=== PATIENT | male | born 1955 | race Caucasian/White ===

== ENCOUNTER 2021-02-25 09:27 | Outpatient (CLI) | payer MEDICARE, SELFPAY ==
--- NOTE | 2021-02-25 09:39 | XR_ITS ---
WS: [id number] Chest 2 views, 02/25/2021 Clinical Data: SHORTNESS OF BREATH Comparison: None. Findings: No nodules, masses or effusions are seen. The heart is normal. The pulmonary vascularity is not increased. No pneumonia or pneumothorax is seen. The aortic arch and descending aorta show mild tortuosity. The diaphragms are flattened. There are calcified granulomas throughout the lungs. There is a decorative item overlying the body of the sternum. XR/XR chest 2V* 92177 Impression: Atherosclerosis and hyperinflation.
== END 2021-02-25 09:28 | disposition home or self-care (01) ==
PROVIDERS: PCP Clinical Nurse Specialist Adult Health; Visit Provider Clinical Nurse Specialist Adult Health
DX: R06.02 Shortness of breath (principal); I70.90 Unspecified atherosclerosis
CPT/HCPCS: 71046

== ENCOUNTER → 2022-10-24 14:31 | Outpatient (BNVA) | payer MEDICARE, SELFPAY | PROVIDERS: PCP Clinical Nurse Specialist Adult Health; Visit Provider Clinical Nurse Specialist Adult Health | DX: Z00.01 Encounter for general adult medical examination with abnormal findings (principal); I10 Essential (primary) hypertension; R19.7 Diarrhea, unspecified | CPT/HCPCS: 80053; 82150; 83690; 84436; 84443; 84481; 85025 ==

== ENCOUNTER → 2023-12-25 10:36 | Outpatient (BNVA) | payer MEDICARE, SELFPAY | PROVIDERS: PCP Clinical Nurse Specialist Adult Health; Visit Provider Clinical Nurse Specialist Adult Health | DX: Z00.01 Encounter for general adult medical examination with abnormal findings (principal); D50.9 Iron deficiency anemia, unspecified; I10 Essential (primary) hypertension; R73.9 Hyperglycemia, unspecified | CPT/HCPCS: 80053; 80061; 83036; 85025 ==

== ENCOUNTER → 2024-01-30 09:16 | Outpatient (BNVA) | payer MEDICARE, SELFPAY | PROVIDERS: PCP Clinical Nurse Specialist Adult Health; Visit Provider Clinical Nurse Specialist Adult Health | DX: Z00.01 Encounter for general adult medical examination with abnormal findings (principal); D50.9 Iron deficiency anemia, unspecified | CPT/HCPCS: 82270 ==

== ENCOUNTER 2024-12-30 11:42 | Emergency (ER) | payer MEDICARE, SELFPAY ==
[2024-12-30 11:52] VITALS: BP 115/72; PULSE 71; RESP 16; TEMP 36.5; O2SAT 100
[2024-12-30 13:13] LABS: Hematocrit 46.3 % (37-53); Hemoglobin 15.90 g/dL (11.27-16.99); Mean Corpuscular HGB Conc 34.3 g/dL (30-55); Mean Corpuscular Hemoglobin 32.6 pg (27-33); Mean Corpuscular Volume 95.1 fl (82-101); Nucleated Red Blood Cells % 0 %; Platelet Count 182 10^3/cmm (157-399); Red Blood Count 4.87 10^6/uL (3.85-5.65); White Blood Count 12.02 10^3/uL (3.29-11.43)
--- NOTE | 2024-12-30 13:22 | W.ED.ALCOHOL ---
HPI - Alcohol General: Chief Complaint: Alcohol Stated Complaint: etoh Time Seen by Provider: 12/30/24 12:59 Source: patient Mode of arrival: EMS Limitations: no limitations History of Present Illness: Patient is a 69-year-old male who presents to ED today via EMS requesting medical alcohol detox. Patient states he has a longstanding alcoholic drinking over a pint of hard alcohol daily. Patient has been drinking today and clinically arrives intoxicated although he engages in conversation quite well. His vital signs are stable. Patient has never sought any form of formal detox previously. He states he has tried to quit home on his own. Patient has never had an alcohol withdrawal seizure. Patient has no physical complaints at time of arrival. 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 Chronic alcohol use: Yes Previous visits for alcohol intoxication: No Recent trauma: No Associated symptoms: Reports no associated symptoms; Deny abdominal pain, nausea, syncope or vomiting Treatments prior to arrival: none Related Data Home Medications ?Medication ?Instructions ?Recorded ?Confirmed famotidine 20 mg tablet (Pepcid) 20 mg PO DAILY 12/25/23 12/30/24 lisinopril 20 mg tablet 20 mg PO DAILY 12/30/24 12/30/24 Allergies Allergy/AdvReac Type Severity Reaction Status Date / Time No Known Allergies Allergy Verified 12/25/23 09:47 Review of Systems Const: Denies: fever(s), chills, body aches, fatigue or malaise Card: Denies: chest pain, palpitations, lightheadedness, syncope or pre-syncope Resp: Denies: dyspnea GI: Denies: abdominal pain, nausea, vomiting or diarrhea Musc: Denies: neck pain, back pain, extremity pain or joint swelling Neuro: Denies: headache(s), numbness in extremities, weakness in extremities, sensory changes, difficulty walking, dizziness or confusion [facility] ED PFSH: Medical History Tobacco dependence due to cigarettes Toxoplasmosis at age 22 Hx of heat stroke Hx of essential hypertension Surgical History History of arthroplasty of left wrist Family History Other CAD (coronary artery disease) Cancer Hypertension Social History Smoking and tobacco/nicotine status: current every day tobacco/nicotine user cigarettes [ Other cigarette details: 0.25 pack for 17 years] Alcohol intake: current Alcohol type: hard liquor Substance/Drug Use: former Date of last use: marijuana Physical Exam Const: COMMON NORMALS: no acute distress, average body habitus, patient oriented x3, no limitations, healthy appearing, alert and well nourished GENERAL APPEARANCE: cooperative ORIENTATION/CONSCIOUSNESS: Yes awake, Yes oriented to person, Yes oriented to place and Yes oriented to time HENMT: COMMON NORMALS: normocephalic and atraumatic HEAD & SCALP: normal to inspection, normocephalic and atraumatic FACE & SINUS: normal facial exam Neck/C-Spine: COMMON NORMALS: full ROM, no lymphadenopathy, supple and no meningeal signs Chest: COMMONS NORMALS: normal inspection of the chest Resp: COMMON NORMALS: normal respiratory effort and clear to auscultation bilaterally AUSCULTATION: clear to auscultation bilaterally Cardio: COMMON NORMALS: regular rate and regular rhythm RATE: regular rate RHYTHM: regular rhythm GI: COMMON NORMALS: Normal to inspection, nondistended, normoactive bowel sounds present, Soft to palpation, non-tender, No hepatosplenomegaly present and no masses PALPATION: Yes Soft to palpation and Yes No hepatosplenomegaly present Back/Pelvis: COMMON NORMALS: thoracic and lumbar spine normal to inspection Extremity: COMMON NORMALS: normal to inspection GENERAL: Yes normal exam except as noted Neuro: VERN COMA SCALE: document GCS findings Vern coma scale eye opening: Spontaneous [place] coma scale verbal response: Orientated [place] coma scale motor response: Obey commands [place] coma scale total score: 15 COMMON NORMALS: patient oriented x3, CN's II-XII intact bilaterally, moves all extremities, no focal motor deficits, no sensory deficits noted and gait normal SENSORIUM/ORIENTATION: Yes alert, Yes oriented to person, Yes oriented to place and Yes oriented to time MENINGEAL SIGNS: Yes no meningeal signs Skin: COMMON NORMALS: no rashes or lesions noted GENERAL SKIN EXAM: no rashes or lesions noted Course Vital Signs: Vital signs: Vital Signs Temperature 97.7 F 12/30/24 11:52 Pulse Rate 71 12/30/24 11:52 Respiratory Rate 16 12/30/24 11:52 Blood Pressure 115/72 12/30/24 11:52 Pulse Oximetry 100 12/30/24 11:52 Oxygen Delivery Me thod Room Air 12/30/24 11:52 MDM - Alcohol Medical Decision Making Patient does not meet criteria for medical inpatient detox. Discussed how he needs a terminal make up operator detox facility for the best chance of success to maintain sobriety. He was given information for [facility] and seems agreeable to this. States he will have to get things settled at home (get care for his animals, etc) before he is ready to do this. He feels comfortable going home at this time and pursuing this when he is ready. There is no indication for hospitalization at this time. Differential Diagnosis Likely alcohol intoxication Medical Records I reviewed the patient's medical records. Lab Data I reviewed the patient's lab results. 12/30/24 13:06 Laboratory Results WBC 12.02 10^3/uL (3.29-11.43) H 12/30/24 13:06 RBC 4.87 10^6/uL (3.85-5.65) 12/30/24 13:06 Hgb 15.90 g/dL (11.27-16.99) 12/30/24 13:06 Hct 46.3 % (37-53) 12/30/24 13:06 MCV 95.1 fl (82-101) 12/30/24 13:06 MCH 32.6 pg (27-33) 12/30/24 13:06 MCHC 34.3 g/dL (30-55) 12/30/24 13:06 RDW 13.2 % (12.1-15.1) 12/30/24 13:06 Plt Count 182 10^3/cmm (157-399) 12/30/24 13:06 MPV 9.1 fL (7.4-10.4) 12/30/24 13:06 Neut % (Auto) 69.0 % 12/30/24 13:06 Lymph % (Auto) 21.6 % 12/30/24 13:06 [place] % (Auto) 7.7 % 12/30/24 13:06 Eos % (Auto) 0.2 % 12/30/24 13:06 Baso % (Auto) 0.5 % 12/30/24 13:06 Neut # (Auto) 8.29 10^3/uL (1.8-7.7) H 12/30/24 13:06 Lymph # (Auto) 2.6 10^3/uL (0.8-4.8) 12/30/24 13:06 [place] # (Auto) 0.9 10^3/uL (0.2-0.9) 12/30/24 13:06 Eos # (Auto) 0.0 10^3/uL (0.0-0.8) 12/30/24 13:06 Baso # (Auto) 0.1 10^3/uL (0.0-0.1) 12/30/24 13:06 Nucleated RBC % (auto) 0 % 12/30/24 13:06 Nucleated RBCs # 0.0 /100WBC 12/30/24 13:06 Sodium Cancelled 12/30/24 13:06 Potassium Cancelled 12/30/24 13:06 Chloride Cancelled 12/30/24 13:06 Carbon Dioxide Cancelled 12/30/24 13:06 Anion Gap Cancelled 12/30/24 13:06 BUN Cancelled 12/30/24 13:06 Creatinine Cancelled 12/30/24 13:06 GFR Calculation Cancelled 12/30/24 13:06 Glucose Cancelled 12/30/24 13:06 Calculated Osmolality Cancelled 12/30/24 13:06 Calcium Cancelled 12/30/24 13:06 Total Bilirubin Cancelled 12/30/24 13:06 AST Cancelled 12/30/24 13:06 ALT Cancelled 12/30/24 13:06 Alkaline Phosphatase Cancelled 12/30/24 13:06 Total Protein Cancelled 12/30/24 13:06 Albumin Cancelled 12/30/24 13:06 Globulin Cancelled 12/30/24 13:06 Ethyl Alcohol Cancelled 12/30/24 13:06 No radiology studies performed this visit Discharge Plan Discharge Patient Disposition: Home Clinical Impression: Chronic alcohol abuse Condition: Stable Prescriptions: No Action famotidine [Pepcid] 20 mg tablet 20 mg PO DAILY lisinopril 20 mg tablet 20 mg PO DAILY Discharge Orders: Discharge ED (Routine); Ordered 12/30/24 Ordered By: Renee Gallo Referrals: Barak,GIRISH RussellP [Primary Care Provider, Nurse Practitioner] Patient Instructions: Alcohol Intoxication (DC), Abuse of Alcohol (DC), Alcohol Dependence (ED), Patient Portal & Savage Instructions Activity Restrictions/Additional Instructions: As we discussed I would recommend reaching out to an outpatient alcohol treatment facility such as [facility] to help with your detention alcohol abuse. Their information is listed below: [address] [place] [address] Print Language: Turkmen Coding Level of Care Code ED Director Of Land for Ijeoma Waite
== END 2024-12-30 13:51 | disposition home or self-care (01) ==
PROVIDERS: Emergency Medicine; Emergency Provider Physician Assistant; PCP Nurse Practitioner Family
DX: F10.10 Alcohol abuse, uncomplicated (principal); F17.210 Nicotine dependence, cigarettes, uncomplicated; I10 Essential (primary) hypertension
CPT/HCPCS: 36415; 85025; 99283

== ENCOUNTER 2024-12-30 18:35 | Emergency (ER) | payer MEDICARE, SELFPAY ==
[2024-12-30 18:52] VITALS: BP 144/84; PULSE 83; RESP 16; TEMP 36.6; O2SAT 98; BMI 19.1
--- NOTE | 2024-12-30 19:13 | W.ED.ALCOHOL ---
HPI - Alcohol General: Chief Complaint: Alcohol Stated Complaint: alcohol abuse Time Seen by Provider: 12/30/24 19:06 Source: patient Mode of arrival: ambulatory Limitations: no limitations History of Present Illness: 69-year-old male with a history of chronic alcohol abuse. Patient presents here from the crisis center he is having suicidal thoughts. He states he has been severely depressed since having thoughts of self-harm and no longer wanting to live. He states he wants to get help. Associated symptoms: Reports depression and suicidal ideation; Deny abdominal pain, nausea or vomiting Related Data Home Medications ?Medication ?Instructions ?Recorded ?Confirmed famotidine 20 mg tablet (Pepcid) 20 mg PO DAILY 12/25/23 12/31/24 lisinopril 20 mg tablet 20 mg PO DAILY 12/30/24 12/31/24 Allergies Allergy/AdvReac Type Severity Reaction Status Date / Time No Known Allergies Allergy Verified 12/25/23 09:47 Review of Systems Const: Denies: fever(s), chills, body aches or change in appetite ENMT: Denies: throat pain or dental pain Card: Denies: chest pain Resp: Denies: dyspnea GI: Denies: abdominal pain, nausea, vomiting or diarrhea Musc: Denies: neck pain or back pain Skin/Breast: Denies: rash Neuro: Denies: headache(s) Psych: Reports: depression and suicidal ideation [facility] ED PFSH: Medical History Tobacco dependence due to cigarettes Toxoplasmosis at age 22 Hx of heat stroke Hx of essential hypertension Surgical History History of arthroplasty of left wrist Family History Other CAD (coronary artery disease) Cancer Hypertension Social History Smoking and tobacco/nicotine status: current every day tobacco/nicotine user cigarettes [ Other cigarette details: 0.25 pack for 17 years] Alcohol intake: current Alcohol type: hard liquor Substance/Drug Use: former Date of last use: marijuana Physical Exam Const: COMMON NORMALS: no acute distress, patient oriented x3 and healthy appearing HENMT: COMMON NORMALS: normocephalic and atraumatic HEAD & SCALP: normocephalic and atraumatic Eye: COMMON NORMALS: conjunctivae normal CONJUNCTIVA: Yes conjunctivae normal Neck/C-Spine: COMMON NORMALS: full ROM and supple Chest: COMMONS NORMALS: normal inspection of the chest Resp: COMMON NORMALS: normal respiratory effort Cardio: COMMON NORMALS: regular rate RATE: regular rate Extremity: COMMON NORMALS: normal to inspection and full ROM Neuro: COMMON NORMALS: patient oriented x3, moves all extremities and no focal motor deficits Psych: COMMON NORMALS: mental status grossly normal, Normal thought process present and cooperative MOOD & AFFECT: Yes depressed mood THOUGHT PROCESS: Normal thought process present THOUGHT CONTENT: Yes Suicidality present Skin: COMMON NORMALS: no rashes or lesions noted and no wounds GENERAL SKIN EXAM: no rashes or lesions noted Course Vital Signs: Vital signs: Vital Signs Temperature 98.3 F 12/31/24 08:00 Pulse Rate 85 12/31/24 08:00 Respiratory Rate 16 12/31/24 08:00 Blood Pressure 132/81 12/31/24 08:00 Pulse Oximetry 98 12/31/24 08:00 Oxygen Delivery Me thod Room Air 12/31/24 04:19 MDM - Alcohol Medical Decision Making Patient presents here with depression and suicidal ideations he is medically cleared he is excepted at [facility] will transfer there for geriatric psych Medical Records I reviewed the patient's medical records. Lab Data I reviewed the patient's lab results. 12/30/24 20:08 12/31/24 09:09 Radiology Impressions Chest X-Ray 12/31/24 03:32 IMPRESSION: No acute findings. Laboratory Results WBC 13.30 10^3/uL (3.29-11.43) H 12/30/24 20:08 RBC 4.79 10^6/uL (3.85-5.65) 12/30/24 20:08 Hgb 15.40 g/dL (11.27-16.99) 12/30/24 20:08 Hct 44.1 % (37-53) 12/30/24 20:08 MCV 92.1 fl (82-101) 12/30/24 20:08 MCH 32.2 pg (27-33) 12/30/24 20:08 MCHC 34.9 g/dL (30-55) 12/30/24 20:08 RDW 13.2 % (12.1-15.1) 12/30/24 20:08 Plt Count 221 10^3/cmm (157-399) 12/30/24 20:08 MPV 8.3 fL (7.4-10.4) 12/30/24 20:08 Neut % (Auto) 68.0 % 12/30/24 20:08 Lymph % (Auto) 23.2 % 12/30/24 20:08 [place] % (Auto) 7.4 % 12/30/24 20:08 Eos % (Auto) 0.4 % 12/30/24 20:08 Baso % (Auto) 0.3 % 12/30/24 20:08 Neut # (Auto) 9.06 10^3/uL (1.8-7.7) H 12/30/24 20:08 Lymph # (Auto) 3.1 10^3/uL (0.8-4.8) 12/30/24 20:08 [place] # (Auto) 1.0 10^3/uL (0.2-0.9) H 12/30/24 20:08 Eos # (Auto) 0.1 10^3/uL (0.0-0.8) 12/30/24 20:08 Baso # (Auto) 0.0 10^3/uL (0.0-0.1) 12/30/24 20:08 Nucleated RBC % (auto) 0 % 12/30/24 20:08 Nucleated RBCs # 0.0 /100WBC 12/30/24 20:08 Sodium 127 mmol/L (136-145) L 12/31/24 09:09 Potassium 4.4 mmol/L (3.5-5.1) 12/31/24 09:09 Chloride 90 mmol/L (98-107) L 12/31/24 09:09 Carbon Dioxide 27 mmol/L (22-29) 12/31/24 09:09 Anion Gap 14.4 (5-19) 12/31/24 09:09 BUN 11 mg/dL (8-23) 12/31/24 09:09 Creatinine 0.7 mg/dL (0.7-1.2) 12/31/24 09:09 GFR Calculation 112.1 mL/min (90-130) 12/31/24 09:09 Glucose 124 mg/dL (65-115) H 12/31/24 09:09 Calculated Osmolality 265 mOsm/kg (285-295) L 12/31/24 09:09 Calcium 8.5 mg/dL (8.5-10.5) 12/31/24 09:09 Total Bilirubin 0.8 mg/dL (0.15-1.2) 12/31/24 09:09 AST 41 U/L (0-40) H 12/31/24 09:09 ALT 46 U/L (0-41) H 12/31/24 09:09 Alkaline Phosphatase 85 U/L (40-130) 12/31/24 09:09 Total Protein 6.0 g/dL (6.6-8.7) L 12/31/24 09:09 Albumin 3.7 g/dL (3.5-5.2) 12/31/24 09:09 Globulin 2.3 g/dL (1.3-4.6) 12/31/24 09:09 TSH 0.34 uIU/mL (0.27-4.20) 12/30/24 20:08 Urine Color Yellow (Yellow) 12/30/24 19:01 Urine Appearance Clear (CLEAR) 12/30/24 19: Urine pH 6.5 (5-7) 12/30/24 19: Ur Specific [place] 1.014 (1.005-1.030) 12/30/24 19:01 Urine Protein Trace (Negative) A 12/30/24 19: Urine Glucose (UA) Negative (Normal) 12/30/24 19: Urine Ketones Negative (Negative) 12/30/24 19: Urine Blood 1+ (Negative) A 12/30/24 19: Urine Nitrate Negative (Negative) 12/30/24 19: Urine Bilirubin Negative (Negative) 12/30/24 19: Urine Urobilinogen 1.0 mg/dL (Negative) 12/30/24 19: Ur Leukocyte Esterase Negative (Negative) 12/30/24 19: Amorphous Sediment Not Reportable 12/30/24 19:01 Salicylates < 0.3 mg/dL (3-10) L 12/30/24 20:08 Urine Opiates Screen Negative ng/mL (Negative) 12/30/24 19:01 Acetaminophen < 5.0 ug/mL (10-30) L 12/30/24 20:08 Ur Barbiturates Screen Negative ng/mL (Negative) 12/30/24 19:01 Ur Phencyclidine Scrn Negative ng/mL (Negative) 12/30/24 19:01 Ur Amphetamines Screen Negative ng/mL (Negative) 12/30/24 19:01 U Benzodiazepines Scrn Negative ng/mL (Negative) 12/30/24 19:01 Urine Cocaine Screen Negative ng/mL (Negative) 12/30/24 19:01 U Marijuana (THC) Screen Positive ng/mL (Negative) H 12/30/24 19:01 Ethyl Alcohol 154 mg/dL (0-10) H 12/30/24 20:08 Influenza A (PCR) Negative (Negative) 12/31/24 05:50 Influenza Type B (PCR) Negative (Negative) 12/31/24 05:50 RSV (PCR) Negative (Negative) 12/31/24 05:50 SARS-CoV-2 (PCR) Negative (Negative) 12/31/24 05:50 No radiology studies performed this visit Discharge Plan Discharge Patient Disposition: Xfer Short-Term Hosp Clinical Impression: Suicidal ideation Condition: Stable Referrals: Cancino,GIRISH RussellP [Primary Care Provider, Nurse Practitioner] Print Language: Dutch Coding Level of Care Code ED Mattress Weaver for Ijeoma Waite
[2024-12-30 20:18] LABS: Hematocrit 44.1 % (37-53); Hemoglobin 15.40 g/dL (11.27-16.99); Mean Corpuscular HGB Conc 34.9 g/dL (30-55); Mean Corpuscular Hemoglobin 32.2 pg (27-33); Mean Corpuscular Volume 92.1 fl (82-101); Nucleated Red Blood Cells % 0 %; Platelet Count 221 10^3/cmm (157-399); Red Blood Count 4.79 10^6/uL (3.85-5.65); White Blood Count 13.30 10^3/uL (3.29-11.43)
--- NOTE | 2024-12-30 20:26 | PC.NURSE ---
[facility] This RN and security presented to pt room to serve pt with copy of [facility]. Pt stated please don't read that to me, its just going to make me worse. This RN asked if pt understood what a 96 [facility] was, pt stated yes, it gets me the help I need . Copy of 96 [facility] rights sheet laid at pt bedside.
[2024-12-30 20:51] LABS: Alanine Aminotransferase 63 U/L (0-41); Albumin Level 4.4 g/dL (3.5-5.2); Alcohol Level 154 mg/dL (0-10); Alkaline Phosphatase 105 U/L (40-130); Anion Gap 19.4 (5-19); Aspartate Amino Transferase 63 U/L (0-40); Blood Urea Nitrogen 8 mg/dL (8-23); Calcium 9.1 mg/dL (8.5-10.5); Carbon Dioxide 23 mmol/L (22-29); Chloride 84 mmol/L (98-107); Creatinine Clr Calc Pharmacy 82.2138; Globulin 3.0 g/dL (1.3-4.6); Glucose 89 mg/dL (65-115); Osmolality Calculated 252 mOsm/kg (285-295); Potassium 4.4 mmol/L (3.5-5.1); Sodium 122 mmol/L (136-145); Thyroid Stimulating Hormone 0.34 uIU/mL (0.27-4.20); Total Protein 7.4 g/dL (6.6-8.7)
[2024-12-30 20:54] LABS: Acetaminophen < 5.0 ug/mL (10-30); Salicylate < 0.3 mg/dL (3-10)
--- NOTE | 2024-12-30 21:50 | ECG_ITS ---
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 Measurements Intervals Faber Rate: 74 P: 24 MS: 188 QRS: -80 QRSD: 133 T: 78 QT: 375 QTc: 418 Interpretive Statements SINUS RHYTHM RIGHT BUNDLE BRANCH BLOCK [120+ ms QRS DURATION, UPRIGHT V1, 40+ ms S IN I/aVL/V4/V5/V6] LEFT ANTERIOR FASCICULAR BLOCK [QRS AXIS <= -45, QR IN I, RS IN II] MINIMAL VOLTAGE CRITERIA FOR LVH, CONSIDER NORMAL VARIANT [MEETS CRITERIA IN ONE OF: R(aVL), S(V1), R(V5), R(V5/V6)+S(V1)] SEPTAL MYOCARDIAL INFARCTION , OF INDETERMINATE AGE [40+ ms Q WAVE IN V1/V2] No previous ECG available for comparison Electronically Signed On 12-31-2024 09:47:22 CDT by Lazaro Desouza M.D. [email or web address]
[2024-12-30 22:21] LABS: PCP Screen Urine Negative (Negative)
[2024-12-31] VITALS: BP 138/76; PULSE 78; RESP 16; O2SAT 94
[2024-12-31 01:34] LABS: Glucose Urine UA Negative (Normal); Nitrate Urine Negative (Negative); Specific Gravity, Urine 1.014 (1.005-1.030)
--- NOTE | 2024-12-31 03:32 | XRR_ITS ---
PROCEDURE INFORMATION: Exam: XR Chest Exam date and time: 12/31/2024 3:44 AM Age: 69 years old Clinical indication: Other: Bh clearance; Additional info: Medical clearance TECHNIQUE: Imaging protocol: Radiologic exam of the chest. Views: 1 view. COMPARISON: CR XR chest 2V* [id number] 02/25/2021 9:44 AM FINDINGS: Lungs: Unremarkable. No consolidation. Pleural spaces: Unremarkable. No pleural effusion. No pneumothorax. Heart/Mediastinum: Unremarkable. No cardiomegaly. Bones/joints: Unremarkable. XR/XR chest 1V [id number] IMPRESSION: No acute findings.
[2024-12-31 04:09] LABS: Anion Gap 14.0 (5-19); Blood Urea Nitrogen 12 mg/dL (8-23); Calcium 8.7 mg/dL (8.5-10.5); Carbon Dioxide 27 mmol/L (22-29); Chloride 88 mmol/L (98-107); Creatinine Clr Calc Pharmacy 82.2138; Glucose 86 mg/dL (65-115); Osmolality Calculated 259 mOsm/kg (285-295); Potassium 4.0 mmol/L (3.5-5.1); Sodium 125 mmol/L (136-145)
[2024-12-31 04:19] VITALS: BP 116/67; PULSE 91; RESP 16; O2SAT 99
[2024-12-31 06:30] LABS: Respiratory Syncytial Virus Ce NEGATIVE (Negative); SARS-CoV-2 PCR NEGATIVE (Negative)
[2024-12-31 08:00] VITALS: BP 132/81; PULSE 85; RESP 16; TEMP 36.8; O2SAT 98
[2024-12-31 09:36] LABS: Alanine Aminotransferase 46 U/L (0-41); Albumin Level 3.7 g/dL (3.5-5.2); Alkaline Phosphatase 85 U/L (40-130); Anion Gap 14.4 (5-19); Aspartate Amino Transferase 41 U/L (0-40); Blood Urea Nitrogen 11 mg/dL (8-23); Calcium 8.5 mg/dL (8.5-10.5); Carbon Dioxide 27 mmol/L (22-29); Chloride 90 mmol/L (98-107); Creatinine Clr Calc Pharmacy 82.2138; Globulin 2.3 g/dL (1.3-4.6); Glucose 124 mg/dL (65-115); Osmolality Calculated 265 mOsm/kg (285-295); Potassium 4.4 mmol/L (3.5-5.1); Sodium 127 mmol/L (136-145); Total Protein 6.0 g/dL (6.6-8.7)
[2024-12-31] MEDS: LORazepam 1 MG/0.5 ML injection IVP (10:43)
--- NOTE | 2024-12-31 12:45 | PC.NURSE ---
[facility] in [place] states that PT can not transfer to their facility until his last dose of IVP ativan has been for at least 4 hours with negative CIWAA
[2024-12-31 13:07] LABS: Alanine Aminotransferase 43 U/L (0-41); Albumin Level 3.4 g/dL (3.5-5.2); Alkaline Phosphatase 100 U/L (40-130); Aspartate Amino Transferase 39 U/L (0-40); Blood Urea Nitrogen 13 mg/dL (8-23); Calcium 7.5 mg/dL (8.5-10.5); Carbon Dioxide 24 mmol/L (22-29); Chloride 95 mmol/L (98-107); Creatinine Clr Calc Pharmacy 82.2138; Globulin 2.1 g/dL (1.3-4.6); Glucose 121 mg/dL (65-115); Osmolality Calculated 267 mOsm/kg (285-295); Sodium 128 mmol/L (136-145); Total Protein 5.5 g/dL (6.6-8.7)
[2024-12-31 13:08] LABS: Anion Gap 13.3 (5-19); Potassium 4.3 mmol/L (3.5-5.1)
[2024-12-31 14:42] VITALS: BP 127/77; PULSE 83; RESP 16; O2SAT 99
[2024-12-31 15:43] VITALS: BP 127/77; PULSE 83; O2SAT 99
== END 2024-12-31 15:46 | disposition short-term general hospital (02) ==
PROVIDERS: Emergency Medicine; Family Medicine; Emergency Provider Emergency Medicine; PCP Nurse Practitioner Family
DX: R45.851 Suicidal ideations (principal); F10.10 Alcohol abuse, uncomplicated; Z79.899 Other long term (current) drug therapy; I10 Essential (primary) hypertension; F17.210 Nicotine dependence, cigarettes, uncomplicated; Z11.52 Encounter for screening for COVID-19
CPT/HCPCS: 36415; 71045; 80048; 80053; 80306; 80307; 81001; 84443; 85025; 87637; 93005; 96361; 96374; 99285; J2060; J7030; J9999